=== PATIENT | male | born 2000 | race Caucasian/White ===

== ENCOUNTER 2023-04-08 23:26 | Emergency (ER) | payer OTHER ==
[~2023-04-08] VITALS: Ht 172.7 cm; Wt 61.7 kg
[~2023-04-08 23:26] MED LIST: Crutch1 EACH MISC; FLUO10 PO
[2023-04-08 23:46] VITALS: BP 134/93
[2023-04-08] MEDS ORDERED: Polyethylene Glycol 3350 17 gm PO ONE (23:55)
== END 2023-04-08 23:56 | disposition home or self-care (01) ==
LOC: ER 23:26
DX: K59.00 Constipation, unspecified (principal); Z88.2 Allergy status to sulfonamides; Z79.899 Other long term (current) drug therapy
CPT/HCPCS: 99283; A9270